=== PATIENT | female | born 1985 | race Caucasian/White ===

== ENCOUNTER 2018-03-29 06:13 | Inpatient (IN) ==
[2018-03-29] MEDS ORDERED: Naloxone 0.4 MG/ML INJ IVP PRN (06:17)
[2018-03-29] MEDS ORDERED: Ondansetron 4 MG/2 ML VIAL IVP PRN (06:17)
[2018-03-29] MEDS ORDERED: Ringers Solution, Lactated 1,000 ML IVC SCH (06:30)
[2018-03-29 06:53] LABS: Basophils # 0.1 K/mcL (0.0-0.2); Basophils % 0.3 %; Eosinophils # 0.1 K/mcL (0.0-0.6); Eosinophils % 0.8 %; Hematocrit 30.8 % (35.3-44.9); Hemoglobin 9.7 g/dL (11.5-15.4); Immature Granulocytes % 0.8 % (0-4); Lymphocytes # 2.4 K/mcL (0.6-4.6); Lymphocytes % 15.8 %; Mean Corpuscular HGB Conc 31.5 g/dL (31.6-35.5); Mean Corpuscular Hemoglobin 25.7 pg (28.0-33.3); Mean Corpuscular Volume 81.7 fL (83.0-100.0); Mean Platelet Volume 11.7 fL (9.4-12.4); Monocytes # 1.1 K/mcL (0.0-1.3); Monocytes % 7.5 %; Neutrophils # 11.4 K/mcL (1.6-8.9); Nucleated Red Blood Cells 0.2 /100 WBC (0); Platelet Count 239 K/mcL (140-400); Red Blood Count 3.77 M/mcL (3.82-4.97); Red Cell Distribution Width 14.6 % (11.5-14.5); Segmented Neutrophils % 74.8 %
--- NOTE | 2018-03-29 06:54 | OB/GYN Procedure Note ---
Delivery - Delivery Date: 03/29/18 Provider: Yaima Arboleda Intrapartum events: meconium (terminal) Delivery induction: none Delivery monitor: none Anesthesia: none Quantitated Blood Loss: 200 - Infant (s) Infant A Delivery Date: 03/29/18 Presentation: vertex Position: OA Route of delivery: Gender: Female Viability: Viable Pounds: 6 Ounces: 10 at 1 minute: 8 at 5 mins: 9 Shoulder Dystocia: not encountered Specimens collected: cord blood Placenta: spontaneous (Delivered by Dr. Borges) Cord: 3 umbilical vessels - Repair Episiotomy: none Laceration Description: None - Complications Delivery complications: meconium (terminal) Delivery comments: Ms. Willis is a 32 year old G2 now P2 who presented from the ED in active labor. S - Disposition Mom disposition: stable in LDR [place] disposition: stable in LDR
--- NOTE | 2018-03-29 07:30 | OB/GYN Procedure Note ---
Delivery - Delivery Date: 03/29/18 Provider: Penny Borges Intrapartum events: none Delivery induction: none Delivery augmentation: rupture of membranes Delivery monitor: external uterine Anesthesia: none Quantitated Blood Loss: 150 - (s) A Infant Delivery Date: 03/29/18 Delivery Time: 06:30 Presentation: vertex Position: OA Route of delivery: Gender: Female Viability: Viable Pounds: 6 Ounces: 10 Weight Gram: 3075 kg Shoulder Dystocia: not encountered Specimens collected: cord blood Placenta: spontaneous Cord: 3 umbilical vessels - Repair Laceration Description: None - Complications Delivery complications: none - Disposition Mom disposition: stable in LDR disposition: stable in LDR - Comments Comments: Alba is a 32 y/o now @ 40+2 weeks who presented to L&D in labor and delivered a vaible female infant @ 6:30 AM, 3VC, no nuchal cord. Infant weighed 3075g (6lbs 10oz), HANNA, EBL 150ml. Placenta delivered @ 6:34AM, 2nd degree laceration repaired with 3-0 vicryl in usual manner. Mother and stable.
--- NOTE | 2018-03-29 07:54 | OB/GYN History & Physical ---
Date of Encounter: 04/11/18 Time of Encounter: 07:54 Assessment and Plan (1) Precipitous delivery Status: Acute patient arrived and delivered a viable female shortly after. Pls see delivery notes. History of Present Illness HPI: Ms. Willis is a 32 year old female @ 40+2 weeks who presents to L&D complaining of ctxs. She starting roopa all AM, she does not report LOF or VB, she has a history of drug use in this , is a smoker and has had multiple missed visits. Past Med Surg Social Fam HX - Past Medical History Medical history: other Additional medical history: epilepsy Psychiatric history: anxiety, depression - Past Surgical History Surgical History: no surgical history - Social History Smoking Status: Current every day smoker Packs per day: 0.5 Smokeless Tobacco Status: No Alcohol use: unknown Drug use: marijuana, methamphetamine - Family History Mother Living Status: Still Living Hx Family Cardiac Disorders: No Hx Family Respiratory Disorders: No Hx Family Cancer: No Hx Family GI Disorders: No Hx Family Genitourinary Disorders: No Hx Family Endocrine Disorder: No Hx Family Musculoskeletal Disorders: No Hx Family Neuromuscular Disorders: No Hx Family Neurologic Disorders: No Hx Family HEENT Disorders: No Hx Family Autoimmune Disorders: No Hx Family Reproductive Disorders: No Hx Family Psychosocial Disorders: Yes (bipolar, schizophrenia) Hx Family Medical Disorders: Yes (hypertension) Obstetrical History - Pregnancies : 2 Para: 0 Medications and Allergies Acetaminophen [Tylenol] 650 mg PO Q6HR PRN tablet 03/30/18 [Rx] Docusate [Colace] 100 mg PO BID PRN #30 capsule 03/30/18 [Rx] Ferrous Sulfate 325 mg PO DAILY #90 tablet 03/30/18 [Rx] Ibuprofen [Motrin] 600 mg PO Q6HR PRN #30 tablet 03/30/18 [Rx] Vit/FA 1 each PO DAILY tablet 03/30/18 [Rx] 3 Allergy/AdvReac Type Severity Reaction Status Date / Time No Known Allergies Allergy Verified 06/06/16 09:23 Exam - Constitutional Constitutional: moderate distress - HEENT HEENT: PERRL - Neck Neck exam: full ROM - Cervix Dilation: 9 Effacement: 100 - Uterus Uterus exam: Present: normal size Results Result Diagrams: 03/29/18 06:20 Abnormal lab results WBC 15.2 K/mcL (4.3-11.1) H 03/29/18 06:20 RBC 3.77 M/mcL (3.82-4.97) L 03/29/18 06:20 Hgb 9.7 g/dL (11.5-15.4) L 03/29/18 06:20 Hct 30.8 % (35.3-44.9) L 03/29/18 06:20 MCV 81.7 fL (83.0-100.0) L 03/29/18 06:20 MCH 25.7 pg (28.0-33.3) L 03/29/18 06:20 MCHC 31.5 g/dL (31.6-35.5) L 03/29/18 06:20 RDW 14.6 % (11.5-14.5) H 03/29/18 06:20 Neutrophils # 11.4 K/mcL (1.6-8.9) H 03/29/18 06:20 Nucleated RBCs/100 WBC 0.2 /100 WBC (0) H 03/29/18 06:20 All other labs normal. - VTE Reasons for not Prescribing Prophylaxis: Treatment not Indicated - Low risk for VTE
[2018-03-29] MEDS ORDERED: Oxytocin 20 units/ LR 1000 mL 20 UNIT/1,000 ML BAG IVC SCH (09:23)
[2018-03-29] MEDS ORDERED: Acetaminophen 325 MG TABLET PO PRN (09:23)
[2018-03-29] MEDS ORDERED: Measles/Mumps/Rubella Vacc 0.5 ML VIAL SQ PRN (09:23)
[2018-03-29] MEDS ORDERED: Prenatal Vit/FA 1 EACH TABLET PO SCH (09:23)
[2018-03-29] MEDS: Ibuprofen 600 MG TABLET PO PRN (21:44)
[2018-03-30] MEDS: Ibuprofen 600 MG TABLET PO PRN (08:30)
[2018-03-30 09:30] VITALS: BP 125/81
--- NOTE | 2018-03-30 10:14 | Discharge Summary ---
Date of Encounter: 03/30/18 Time of Encounter: 10:12 - Discharge Diagnosis (1) Precipitous delivery Priority: Primary Status: Acute Comments: S/P vaginal delivery day 1. VSS Pain is well controlled Lochia is light and without clots Voiding and passing flatus without difficulty Bottle feeding well. Discharge home today. (2) Poly-drug misuser Priority: Secondary Status: Acute Comments: Patient arrived to unit and precipitously delivered per report this AM. When asked, patient states that she has not used "in about a month and it was subutex". Patient had difficulty making eye contact and difficulty sitting still during her exam today. Also per report, patient brought a vial of urine with her and was found to be between her breasts during delivery; she declined a urine drug screen She was a member of [facility] and stopped attending in September of 2017. Social work is working with her and her child; we will discharge the mother today and baby is being held in [facility] due to maternal history of drug abuse. - Discharge Medications Prescriptions: Ibuprofen [Motrin] 600 mg PO Q6HR PRN #30 tablet PRN Reason: Cramping Docusate [Colace] 100 mg PO BID PRN #30 capsule PRN Reason: Constipation Ferrous Sulfate 325 mg PO DAILY #90 tablet Home Medications: Acetaminophen [Tylenol] 650 mg PO Q6HR PRN tablet 03/30/18 [Rx] Docusate [Colace] 100 mg PO BID PRN #30 capsule 03/30/18 [Rx] Ferrous Sulfate 325 mg PO DAILY #90 tablet 03/30/18 [Rx] Ibuprofen [Motrin] 600 mg PO Q6HR PRN #30 tablet 03/30/18 [Rx] Vit/FA 1 each PO DAILY tablet 03/30/18 [Rx] Allergies/Adverse Reactions: 3 Allergy/AdvReac Type Severity Reaction Status Date / Time No Known Allergies Allergy Verified 06/06/16 09:23 Data Procedures and tests throughout hospitalization: Laboratory Tests 03/29/18 03/29/18 03/29/18 06:20 06:20 07:10 WBC 15.2 H RBC 3.77 L Hgb 9.7 L Hct 30.8 L MCV 81.7 L MCH 25.7 L MCHC 31.5 L RDW 14.6 H Plt Count 239 MPV 11.7 Immature Gran % 0.8 Seg Neutrophils % 74.8 Lymphocytes % 15.8 Monocytes % 7.5 Eosinophils % 0.8 Basophils % 0.3 Neutrophils # 11.4 H Lymphocytes # 2.4 Monocytes # 1.1 Eosinophils # 0.1 Basophils # 0.1 Nucleated RBCs/100 WBC 0.2 H Specimen Rejected Labelling Baby's Blood Type AB RH NEGATIVE Mother's Blood Type B RH NEGATIVE Rhogam Indicated NO Labs on day of discharge: Labs from last 24 hours 03/29/18 07:10 Rhogam Indicated NO Date of admission: 03/29/18 06:13 Primary care physician: PCP FIDEL Consults: 03/29/18 09:23 Consult to Fountain Manager [CONS] Routine Comment: Vaginal delivery, consult needed Consult to Non Destructive Testing Supervisor [CONS] Routine Reason for SW Consult: scant pnc, known polysubstance abuse Discharging clinician: Yaima Alexander Anticipated date of discharge: 03/30/18 - Patient Status Disposition: Home, Self-Care Condition: Good Functional capacity at discharge: independent ambulation Overall status at discharge: patient is progressing back to baseline - Discharge Instructions Follow Up With: NONE,PCP [Primary Care Provider] - Penny Borges MD [Partnered Physician] - - Diet and Activity Activity: increase activity as tolerated Diet: regular diet Hospital Course Reason for admission: active labor, IUP at term Delivery: Episiotomy: none Other procedures: none complications: none Discharge diagnosis: IUP at term delivered [place] baby: female Time spent discussing smoking cessation with patient: 3 to 10 minutes Time Attestation: Total time spent providing and/or coordinating discharge services: Time Spent: Less than 30 minutes Exam - Constitutional Vitals: Temp Pulse Resp BP Pulse Ox 98.2 F 96 16 125/81 98 03/30/18 07:55 03/30/18 07:55 03/30/18 07:55 03/30/18 07:55 03/30/18 07:55 General appearance IM: cooperative, A&O X 3, pleasant - Respiratory Respiratory exam: Present: CTAB - Cardiovascular Cardiovascular exam IM: Present: RRR, +S1, +S2 - GI/Abdominal GI/Abdominal exam IM: normal bowel sounds, soft - Rectal Rectal exam: deferred - Uterine Tone: Firm Uterus Position: At Umbilicus, Midline - Extremities Exam Extremities exam IM: Present: normal capillary refill, normal inspection, radial pulses palpable and symmetrical - Neurological Exam Neurological exam: alert, oriented X3
== END 2018-03-30 13:22 | disposition home or self-care (01) | DRG 560 ==
LOC: 1NENULAB 06:13 → 1NENUOBS 12:04
PROVIDERS: ADMIT Student in an Organized Health Care Education/Training Program; ATTEND Student in an Organized Health Care Education/Training Program